=== PATIENT | female | born 1955 | race Caucasian/White ===

== ENCOUNTER 2016-11-22 15:21 | Emergency (ER) | payer OTHER ==
[~2016-11-22] VITALS: Ht 162.6 cm; Wt 59.0 kg
[2016-11-22 15:29] VITALS: BP 159/81; PULSE 78; RESP 20; TEMP 97.8; O2SAT 100
--- NOTE | 2016-11-22 15:35 | PD ---
Physical Exam Time Seen by Provider: 15:31 Narrative 60 year old female here with L hand laceration, she cut her hand with a metal sheet. reportedly the wound wraps around from the volar to dorsal side of hand, currently wrapped with gauze and glove so unable to assess the full extent of injury. +bleeding, throbbing pain, slight paresthesias. VSS. Seen at triage desk, awaiting bed placement. Data Data Last Documented VS Vital Signs Date Time Temp Pulse Resp B/P Pulse Ox O2 Delivery O2 Flow Rate FiO2 11/22/16 15:29 97.8 78 20 159/81 100 Room Air [facility] Medical Record Reviewed: Yes Supervised Visit with MARY BETH: Yes Humberto Garcia Nov 22, 2016 15:35
[2016-11-22] MEDS ORDERED: TETANUS/DIPHTHERIA TOXOID ADULT 0.5 ML VIAL IM ONE (15:45)
[2016-11-22] MEDS ORDERED: LIDOCAINE HCL 1% 50 ML VIAL INFIL ONE (15:45)
[2016-11-22] MEDS ORDERED: IBUP-232 PO (16:17)
[2016-11-22] MEDS ORDERED: CEPH-460 PO (16:17)
--- NOTE | 2016-11-22 16:20 | PD ---
HPI Chief Complaint: Laceration/Skin Injury Time Seen by Provider: 16:13 Travel History International Travel<30 days: No Contact w/Intl Traveler<30days: No Traveled to known affect area: No History of Present Illness HPI 60-year-old female presents to the emergency department for evaluation of a laceration to the left hand that occurred just prior to arrival. Patient arrived via EMS. She states that she was at work and a piece of metal lacerated her hand through 2 pairs of gloves. The patient states her tetanus immunization is not up-to-date. She has no chronic medical problems and takes no prescribed medications. The patient is right-handed. She denies any other complaints at this time. [facility] Social History Alcohol Use: Yes (occassionally) Tobacco Use: No Substance Use: No Allergies-Medications (Allergen,Severity, Reaction): Uncoded Allergies: PAIN MEDICATION (Allergy, Severe, Anaphylaxis, 11/22/16) Reported Meds & Prescriptions Reported Meds & Active Scripts Active No Active Prescriptions or Reported Medications Review of Systems Except as stated in HPI: all other systems reviewed are Neg Physical Exam Narrative GENERAL: Well-nourished, well-developed female patient, afebrile. SKIN: Focused skin assessment warm/dry. Patient has a 3 cm laceration to the left dorsal hand to the webspace between the first and second digits. HEAD: Normocephalic. Atraumatic. EYES: No scleral icterus. No injection or drainage. NECK: Supple, trachea midline. No JVD or lymphadenopathy. CARDIOVASCULAR: Regular rate and rhythm without murmurs, gallops, or rubs. Left radial pulse 2+. Capillary refill less than 2 seconds to the digits of the left hand. RESPIRATORY: Breath sounds equal bilaterally. No accessory muscle use. Lungs sounds clear to auscultation. GASTROINTESTINAL: Abdomen soft, non-tender, nondistended. MUSCULOSKELETAL: No cyanosis, or edema. Patient has full flexion-extension of all digits of the left hand. She has full sensation to all distal digits of the left hand. Data Data Last Documented VS Vital Signs Date Time Temp Pulse Resp B/P Pulse Ox O2 Delivery O2 Flow Rate FiO2 11/22/16 15:29 97.8 78 20 159/81 100 Room Air Orders Lidocaine 1% Inj (50 Ml) (Xylocaine 1% I (11/22/16 15:45) Tetanus/Diphtheria Tox Adult (Tetanus/Di (11/22/16 15:45) [facility] Medical Decision Making Medical Screen Exam Complete: Yes Emergency Medical Condition: Yes Medical Record Reviewed: Yes Differential Diagnosis Laceration versus tendon laceration versus foreign body Narrative Course 60-year-old female presents to the emergency department for evaluation of a laceration to her left hand that occurred just prior to arrival. Physical exam reveals a 3 cm laceration to the dorsal aspect of the left hand between the first and second digits. The laceration is clean and no evidence of foreign body. There Is no evidence of tendon injury. Patient gives verbal consent for laceration repair. Patient is instructed on proper wound care. She'll be discharged with a prescription for ibuprofen for pain and Keflex. She verbalizes agreement and understanding. Procedures Procedure Narrative LACERATION LOCATION: Left dorsal hand LENGTH: 3 cm NUMBER OF STITCHES/ALEX: 5 simple interrupted sutures REPAIR: The area of the laceration was prepped with Betadine and sterilely draped. The laceration was infiltrated with 1% lidocaine. The wound was copiously irrigated and explored without evidence of foreign body, tendon injury or neurovascular injury. The wound was closed using 4-0 Prolene. This was a single layer repair. A sterile dressing was applied. The patient was advised to keep the dressing clean and dry. Patient tolerated the procedure well. Diagnosis Primary Impression: Hand laceration Qualified Code: S61.412A - Laceration of left hand without foreign body, initial encounter Referrals: Primary Care Physician call for appointment Patient Instructions: Care For Your Stitches (ED), General Instructions, Laceration (ED) Departure Forms: Tests/Procedures, Work Release Special Instructions: limit use of left hand until sutures are out in 7 days Additional Instructions: Clean twice daily with soap and water and apply [id number] antibiotic ointment. Take ibuprofen as directed as needed with food for pain. Take Keflex, antibiotic, until gone. Keep laceration clean and dry. No swimming or hot tubs. Keep laceration covered at work where he can get dirty. Use a nonstick dressing with ari gauze over it. Suture removal in 7 days. Return to the emergency department for any acute worsening of symptoms. Med/Other Pt SpecificInfo: Prescription(s) given Scripts Cephalexin (Keflex)500 Mg [id number] Mg PO Q8H 7 Days Ref 0 Prov:Denisha Lee 11/22/16 Ibuprofen 600 Mg Ncv142 Mg PO TID PRN (PAIN SCALE 1 TO 10) #21 TAB Ref 0 Prov:Denisha Lee 11/22/16 Disposition: 01 DISCHARGE HOME Condition: Stable Denisha Lee Nov 22, 2016 16:20
== END 2016-11-22 17:05 | disposition home or self-care (01) ==
LOC: NEPD 15:21
DX: S61.412A Laceration without foreign body of left hand, initial encounter (principal); W26.8XXA Contact with other sharp object(s), not elsewhere classified, initial encounter; Y92.61 Building [any] under construction as the place of occurrence of the external cause; Y99.0 Civilian activity done for income or pay; Z23 Encounter for immunization
CPT/HCPCS: 12002; 90471; 90714